=== PATIENT | female | born 1960 | race Caucasian/White ===

== ENCOUNTER 2017-04-09 11:34 | Emergency (ER) | payer OTHER | END 2017-04-09 13:00 | disposition home or self-care (01) | LOC: E/R 11:34 | DX: J06.9 Acute upper respiratory infection, unspecified (principal); I10 Essential (primary) hypertension; J45.901 Unspecified asthma with (acute) exacerbation | CPT/HCPCS: 99284; Z7502 ==

== ENCOUNTER 2018-02-15 01:20 | Emergency (ER) | payer OTHER ==
[2018-02-15] MEDS: hydrALAzine 20 MG INJ IV (01:54)
[2018-02-15 02:19] LABS: ADD MAN DIFF? NO
[2018-02-15 02:21] LABS: BASOPHIL # 0.1 10^3/ul (0.0-0.1); BASOPHILS % 1.3 % (0.0-2.0); EOSINOPHILS # 0.2 10^3/ul (0.0-0.5); EOSINOPHILS % 3.2 % (0.0-7.0); HEMATOCRIT 39.7 % (37.0-47.0); HEMOGLOBIN 12.9 g/dl (12.0-16.0); LYMPHOCYTES % 28.5 % (15.0-51.0); MEAN CORPUSCULAR HEMOGLOBIN 30.8 pg (29.0-33.0); MEAN CORPUSCULAR HGB CONC 32.5 g/dl (32.0-37.0); MEAN CORPUSCULAR VOLUME 94.7 fl (82.0-101.0); MEAN PLATELET VOLUME 10.9 fl (7.4-10.4); MONOCYTE # 0.9 10^3/ul (0.3-0.9); MONOCYTES % 11.9 % (0.0-11.0); NEUTROPHIL # 3.9 10^3/ul (1.6-7.5); NEUTROPHILS % 54.7 % (39.0-77.0); PLATELET COUNT 258 10^3/UL (140-415); RED BLOOD COUNT 4.19 10^6/ul (4.20-5.40); RED CELL DISTRIBUTION WIDTH 13.5 % (11.5-14.5)
[2018-02-15 02:21] LABS: WHITE BLOOD COUNT 7.2 10^3/ul (4.8-10.8)
[2018-02-15] MEDS: ONDANSETRON 4 MG INJ IV (02:31)
[2018-02-15 02:54] LABS: ALANINE AMINOTRANSFERASE 20 IU/L (13-69); ALBUMIN/GLOBULIN RATIO 1.25; ALKALINE PHOSPHATASE 94 IU/L (42-121); ANION GAP 11 (5-13); ASPARTATE AMINO TRANSFERASE 25 IU/L (15-46); BILIRUBIN,INDIRECT 0.3 mg/dl (0-1.1); BILIRUBIN,TOTAL 0.3 mg/dl (0.2-1.3); BLOOD UREA NITROGEN 13 mg/dl (7-20); CALCIUM 8.8 mg/dl (8.4-10.2); CARBON DIOXIDE 26 mmol/L (21-31); CHLORIDE 107 mmol/L (97-110); CREATININE 0.69 mg/dl (0.44-1.00); Estimated GFR > 60 mL/min (>60); GLUCOSE 118 mg/dl (70-220); POTASSIUM 3.7 mmol/L (3.5-5.1); SODIUM 144 mmol/L (135-144); TOTAL PROTEIN 7.2 g/dl (6.1-8.1)
[2018-02-15 03:06] LABS: B-TYPE NATRIURETIC PEPTIDE 238 PG/ML (0-125); TROPONIN-I < 0.012 ng/ml (0.000-0.120)
== END 2018-02-15 05:30 | disposition home or self-care (01) ==
LOC: E/R 01:20
DX: J02.9 Acute pharyngitis, unspecified (principal); R52 Pain, unspecified; R11.0 Nausea; J45.909 Unspecified asthma, uncomplicated; I10 Essential (primary) hypertension
CPT/HCPCS: 36415; 71045; 80053; 83880; 84484; 85025; 93005; 96374; 96375; 99285-25

== ENCOUNTER 2018-09-13 16:48 | Emergency (ER) | payer OTHER | END 2018-09-13 19:05 | disposition home or self-care (01) | LOC: FTE 16:48 | DX: I10 Essential (primary) hypertension (principal); J45.901 Unspecified asthma with (acute) exacerbation | CPT/HCPCS: 99283; Z7502 ==

== ENCOUNTER 2018-09-20 19:04 | Emergency (ER) | payer OTHER ==
[2018-09-20] MEDS: predniSONE 20 MG TAB PO (20:16)
[2018-09-20] MEDS: ALBUTEROL 0.083% (NEB) 2.5 MG/3 ML AMP HHN (20:45)
== END 2018-09-20 21:34 | disposition home or self-care (01) ==
LOC: FTE 19:04
DX: J45.901 Unspecified asthma with (acute) exacerbation (principal); J06.9 Acute upper respiratory infection, unspecified
CPT/HCPCS: 94664; 99283-25

== ENCOUNTER 2018-09-26 21:13 | Emergency (ER) | payer OTHER ==
[2018-09-26] MEDS: ALBUTEROL 0.083% (NEB) 2.5 MG/3 ML AMP NEB (22:14)
[2018-09-26] MEDS: IPRATROPIUM (NEB) 0.5 MG/2.5 ML AMP NEB (22:14)
[2018-09-26] MEDS: ACETAMINOPHEN 325 MG TAB PO (22:32)
== END 2018-09-26 22:41 | disposition home or self-care (01) ==
LOC: FTE 21:13
DX: J45.909 Unspecified asthma, uncomplicated (principal); I10 Essential (primary) hypertension; E03.9 Hypothyroidism, unspecified
CPT/HCPCS: 94664; 99283-25

== ENCOUNTER 2018-10-03 22:45 | Emergency (ER) | payer OTHER ==
[2018-10-04] MEDS: DEXAMETHASONE 10 MG/ML 1 ML INJ IM (00:09)
[2018-10-04] MEDS ORDERED: ACETAMINOPHEN 325 MG TAB (00:21)
[2018-10-04] MEDS: ACETAMINOPHEN 650 MG SUPP PR (00:25)
[2018-10-04] MEDS: ACETAMINOPHEN 325 MG TAB PO (00:27)
== END 2018-10-04 00:19 | disposition home or self-care (01) ==
LOC: FTE 10-04 00:19
DX: J40 Bronchitis, not specified as acute or chronic (principal); I10 Essential (primary) hypertension
CPT/HCPCS: 96372; 99284-25

== ENCOUNTER 2018-10-25 18:54 | Emergency (ER) | payer OTHER ==
[2018-10-25] MEDS: ALBUTEROL 0.083% (NEB) 2.5 MG/3 ML AMP NEB (19:31)
[2018-10-25] MEDS: IPRATROPIUM (NEB) 0.5 MG/2.5 ML AMP NEB (19:31)
== END 2018-10-25 20:39 | disposition home or self-care (01) ==
LOC: FTE 18:54
DX: J40 Bronchitis, not specified as acute or chronic (principal); I10 Essential (primary) hypertension; E03.9 Hypothyroidism, unspecified
CPT/HCPCS: 71045; 93005; 94664; 99284-25

== ENCOUNTER 2018-11-22 20:21 | Emergency (ER) | payer OTHER ==
[2018-11-22] MEDS: ALBUTEROL 0.083% (NEB) 2.5 MG/3 ML AMP NEB (21:43)
== END 2018-11-22 22:58 | disposition home or self-care (01) ==
LOC: FTE 20:21
DX: J06.9 Acute upper respiratory infection, unspecified (principal); H66.003 Acute suppurative otitis media without spontaneous rupture of ear drum, bilateral; M79.632 Pain in left forearm; I10 Essential (primary) hypertension; E03.9 Hypothyroidism, unspecified; J45.909 Unspecified asthma, uncomplicated
CPT/HCPCS: 71046; 73090; 94664; 99284-25